=== PATIENT | female | born 1940 | race Caucasian/White ===

== ENCOUNTER 2023-10-01 21:01 | Inpatient (IN) ==
[2023-10-01 22:52] LABS: Basophils # (Auto) 0.02 K/mcL (0.00-0.30); Basophils % (Auto) 0.1 % (0.0-2.0); Eosinophils # (Auto) 0 K/mcL (0.00-0.70); Eosinophils % (Auto) 0 % (0.0-7.0); Hematocrit 34.8 % (34.1-44.9); Hemoglobin 10.8 g/dL (11.2-15.7); Lymphocytes # (Auto) 0.39 K/mcL (1.50-4.80); Lymphocytes % (Auto) 2.6 % (15.5-49.0); Mean Cell Volume 97.5 fL (80.0-100.0); Mean Platelet Volume 10.3 fL (8.8-12.5); Monocytes # (Auto) 0.66 K/mcL (0.10-0.90); Monocytes % (Auto) 4.4 % (1.0-12.0); Neutrophils % (Auto) 91.7 % (38.0-78.0); Platelet Count 251 K/mcL (140-440); RBC 3.57 M/mcL (3.59-5.38); Red Cell Distribution Width 14.1 % (11.5-14.5)
[2023-10-01 23:04] LABS: ALT/SGPT 131 U/L (<40); AST/SGOT 121 U/L (<32); Albumin/Globulin Ratio 1.1 (1.0-2.3); Alkaline Phosphatase 249 U/L (39-117); Bilirubin,Total 0.2 mg/dL (0.1-1.0); Blood Urea Nitrogen 62 mg/dL (8-23); Calcium 9.8 mg/dL (8.6-10.4); Carbon Dioxide 30 mmol/L (22-30); Chloride 103 mmol/L (96-108); Globulin 2.8 gm/dL (2.2-3.7); Glomerular Filtration Rate 37; Glucose 109 mg/dL (70-105)
[2023-10-01] MEDS: IPRATROPIUM/ALBUTEROL 3 ML AMPUL.NEB NEB ONE (23:30)
[2023-10-01] MEDS: 0.9 % SODIUM CHLORIDE 250 ML IV ONE (23:39)
[2023-10-01] MEDS: AZITHROMYCIN 500 MG in DEXTROSE 5% IN WATER 250 ML IV ONE (23:39)
[2023-10-01] MEDS: methylPREDNISolone SOD SUCC 125 MG/2 ML VIAL IV ONE (23:40)
[2023-10-02] MEDS: IPRATROPIUM/ALBUTEROL 3 ML AMPUL.NEB NEB ONE (02:23)
[2023-10-02] MEDS: cefTRIAXone 1 GM VIAL IV SCH (02:53)
[2023-10-02] MEDS: LACTATED RINGERS 1,000 ML IV SCH ×3 (03:28→06:09)
[2023-10-02] MEDS: CEFEPIME 1 GM VIAL IV SCH ×2 (03:30→17:44)
[2023-10-02] MEDS: LACTATED RINGERS 1,000 ML IV ONE (03:30)
[2023-10-02] MEDS: VANCOMYCIN 1,000 MG in 0.9 % SODIUM CHLORIDE 250 ML IV ONE (05:13)
[2023-10-02] MEDS: VANCOMYCIN PER PHARMACY IV ONE (06:08)
[2023-10-02 06:54] LABS: Basophils # (Auto) 0.01 K/mcL (0.00-0.30); Basophils % (Auto) 0.1 % (0.0-2.0); Eosinophils # (Auto) 0 K/mcL (0.00-0.70); Eosinophils % (Auto) 0 % (0.0-7.0); Hematocrit 34.6 % (34.1-44.9); Hemoglobin 10.6 g/dL (11.2-15.7); Lymphocytes # (Auto) 0.24 K/mcL (1.50-4.80); Lymphocytes % (Auto) 1.7 % (15.5-49.0); Mean Cell Volume 100.6 fL (80.0-100.0); Mean Corpuscular HGB Conc 30.6 g/dL (31.0-36.0); Mean Platelet Volume 10.2 fL (8.8-12.5); Monocytes # (Auto) 0.26 K/mcL (0.10-0.90); Monocytes % (Auto) 1.9 % (1.0-12.0); Neutrophils % (Auto) 95.4 % (38.0-78.0); Platelet Count 227 K/mcL (140-440); RBC 3.44 M/mcL (3.59-5.38); Red Cell Distribution Width 13.6 % (11.5-14.5); WBC 13.9 K/mcL (4.5-11.0)
[2023-10-02] MEDS ORDERED: ONDANSETRON 4 MG/2 ML VIAL IV PRN (06:58)
[2023-10-02] MEDS ORDERED: ACETAMINOPHEN 325 MG TABLET PO PRN (06:58)
[2023-10-02] MEDS ORDERED: HYDROcodone/APAP 5/325MG TABLET PO PRN (06:58)
[2023-10-02 07:24] LABS: ALT/SGPT 113 U/L (<40); AST/SGOT 107 U/L (<32); Albumin 2.8 gm/dL (3.2-5.2); Albumin/Globulin Ratio 1.1 (1.0-2.3); Alkaline Phosphatase 240 U/L (39-117); Bilirubin,Total 0.2 mg/dL (0.1-1.0); Blood Urea Nitrogen 52 mg/dL (8-23); C-Reactive Protein 7.29 mg/dL (0.03-0.80); Calcium 9.8 mg/dL (8.6-10.4); Carbon Dioxide 29 mmol/L (22-30); Chloride 103 mmol/L (96-108); Globulin 2.6 gm/dL (2.2-3.7); Glomerular Filtration Rate 46; Glucose 126 mg/dL (70-105)
[2023-10-02] MEDS ORDERED: VANCOMYCIN PER PHARMACY IV SCH (07:45)
[2023-10-02] MEDS: IPRATROPIUM/ALBUTEROL 3 ML AMPUL.NEB NEB SCH (08:06)
[2023-10-02] MEDS: methylPREDNISolone SOD SUCC 125 MG/2 ML VIAL IV SCH (08:22)
[2023-10-02] MEDS: DOCUSATE SODIUM 100 MG CAPSULE PO SCH (08:23)
[2023-10-02] MEDS ORDERED: methylPREDNISolone SOD SUCC 125 MG/2 ML VIAL IV SCH (09:00)
[2023-10-02] MEDS: APIXABAN 2.5 MG TABLET PO SCH (10:46)
[2023-10-02] MEDS: 0.9 % SODIUM CHLORIDE 10 ML SYRINGE IV SCH (13:30)
[2023-10-02] MEDS: METOPROLOL TARTRATE 5 MG/5 ML VIAL IV PRN (13:58)
[2023-10-02] MEDS ORDERED: CHLORHEXIDINE GLUCONATE 0.12% 473ML BOTTLE TOPICAL SCH (14:00)
[2023-10-02] MEDS ORDERED: BISACODYL 5 MG TABLET PO PRN (14:05)
[2023-10-02] MEDS: GABAPENTIN 100 MG CAPSULE PO SCH (14:33)
[2023-10-02] MEDS: guaiFENesin/CODEINE 10 ML UDC PO PRN (15:18)
[2023-10-02] MEDS ORDERED: 0.9 % SODIUM CHLORIDE 1,000 ML IV SCH (15:30)
[2023-10-02 15:52] LABS: Basophils # (Auto) 0 K/mcL (0.00-0.30); Basophils % (Auto) 0 % (0.0-2.0); Eosinophils # (Auto) 0 K/mcL (0.00-0.70); Eosinophils % (Auto) 0 % (0.0-7.0); Hematocrit 38.1 % (34.1-44.9); Hemoglobin 11.4 g/dL (11.2-15.7); Lymphocytes # (Auto) 0.69 K/mcL (1.50-4.80); Lymphocytes % (Auto) 4.3 % (15.5-49.0); Mean Cell Volume 100.8 fL (80.0-100.0); Mean Corpuscular HGB Conc 29.9 g/dL (31.0-36.0); Mean Platelet Volume 10.4 fL (8.8-12.5); Monocytes # (Auto) 0.55 K/mcL (0.10-0.90); Monocytes % (Auto) 3.5 % (1.0-12.0); Neutrophils % (Auto) 91.1 % (38.0-78.0); Platelet Count 327 K/mcL (140-440); RBC 3.78 M/mcL (3.59-5.38); Red Cell Distribution Width 13.7 % (11.5-14.5); WBC 15.9 K/mcL (4.5-11.0)
[2023-10-02 16:09] LABS: ALT/SGPT 117 U/L (<40); AST/SGOT 114 U/L (<32); Albumin/Globulin Ratio 1.1 (1.0-2.3); Alkaline Phosphatase 241 U/L (39-117); Bilirubin,Total 0.3 mg/dL (0.1-1.0); Blood Urea Nitrogen 50 mg/dL (8-23); Calcium 9.7 mg/dL (8.6-10.4); Carbon Dioxide 26 mmol/L (22-30); Chloride 101 mmol/L (96-108); Globulin 2.8 gm/dL (2.2-3.7); Glomerular Filtration Rate 34; Glucose 232 mg/dL (70-105)
[2023-10-02] MEDS: IPRATROPIUM/ALBUTEROL 3 ML AMPUL.NEB NEB PRN (16:09)
[2023-10-02] MEDS: SODIUM CHLORIDE 3 % 15 ML VIAL.NEB INH ONE (16:09)
[2023-10-02] MEDS: guaiFENesin 600 MG TAB.SR.12H PO SCH (16:09)
[2023-10-02] MEDS: RIVAROXABAN 15 MG TABLET PO SCH (17:21)
[2023-10-02] MEDS: BUDESONIDE 0.5 MG/2 ML AMPUL.NEB NEB SCH (18:51)
[2023-10-02] MEDS: BUDESONIDE 0.5 MG/2 ML AMPUL.NEB ONE (20:46)
[2023-10-02] MEDS: HYDROcodone/APAP 5/325MG TABLET PO SCH (21:42)
[2023-10-02] MEDS: traZODone HCL 50 MG TABLET PO SCH (21:42)
[2023-10-02] MEDS: MONTELUKAST 10 MG TABLET PO SCH (21:42)
[2023-10-02] MEDS: methylPREDNISolone SOD SUCC 40 MG/ML VIAL IV SCH (21:42)
[2023-10-02] MEDS: MUPIROCIN OINT 2% 22GM NARES SCH (21:43)
[2023-10-03] MEDS: IPRATROPIUM/ALBUTEROL 3 ML AMPUL.NEB NEB ONE (03:14)
[2023-10-03] MEDS: IPRATROPIUM/ALBUTEROL 3 ML AMPUL.NEB NEB PRN (03:14)
[2023-10-03 06:24] LABS: Basophils # (Auto) 0.01 K/mcL (0.00-0.30); Basophils % (Auto) 0.1 % (0.0-2.0); Eosinophils # (Auto) 0 K/mcL (0.00-0.70); Eosinophils % (Auto) 0 % (0.0-7.0); Hemoglobin 10.5 g/dL (11.2-15.7); Lymphocytes % (Auto) 2.3 % (15.5-49.0); Mean Cell Volume 105.3 fL (80.0-100.0); Mean Corpuscular HGB Conc 29.2 g/dL (31.0-36.0); Mean Platelet Volume 10.9 fL (8.8-12.5); Monocytes # (Auto) 0.45 K/mcL (0.10-0.90); Monocytes % (Auto) 3.4 % (1.0-12.0); Neutrophils % (Auto) 93.8 % (38.0-78.0); Platelet Count 205 K/mcL (140-440); RBC 3.42 M/mcL (3.59-5.38); Red Cell Distribution Width 13.8 % (11.5-14.5); WBC 13.3 K/mcL (4.5-11.0)
[2023-10-03 07:25] LABS: ALT/SGPT 99 U/L (<40); AST/SGOT 96 U/L (<32); Albumin 2.8 gm/dL (3.2-5.2); Alkaline Phosphatase 208 U/L (39-117); Bilirubin,Direct < 0.2 mg/dL (0-0.3); Bilirubin,Total 0.2 mg/dL (0.1-1.0); Blood Urea Nitrogen 53 mg/dL (8-23); Calcium 9.9 mg/dL (8.6-10.4); Carbon Dioxide 23 mmol/L (22-30); Chloride 106 mmol/L (96-108); Globulin 2.7 gm/dL (2.2-3.7); Glomerular Filtration Rate 41; Glucose 151 mg/dL (70-105); Lactate Dehydrogenase 485 U/L (135-225); Phosphorous 2.9 mg/dL (2.5-4.5); Triglycerides 105 mg/dL (<150); Uric Acid 6.3 mg/dL (2.5-8.0)
[2023-10-03] MEDS: METOPROLOL SUCCINATE 25 MG TAB.XL.24H PO SCH (08:37)
[2023-10-03] MEDS: VANCOMYCIN 1,000 MG in 0.9 % SODIUM CHLORIDE 250 ML IV SCH (09:59)
[2023-10-03] MEDS ORDERED: SODIUM CHLORIDE 3 % 15 ML VIAL.NEB INH ONE (21:22)
[2023-10-03] MEDS: SODIUM CHLORIDE 3 % 15 ML VIAL.NEB INH ONE (21:41)
[2023-10-03] MEDS: ACETYLCYSTEINE 800 MG/4 ML VIAL NEB ONE (23:12)
[2023-10-03] MEDS: ACETYLCYSTEINE 800 MG/4 ML VIAL ONE (23:12)
[2023-10-03] MEDS: IPRATROPIUM/ALBUTEROL 3 ML AMPUL.NEB NEB SCH (23:15)
[2023-10-04 05:58] LABS: Basophils # (Auto) 0.01 K/mcL (0.00-0.30); Basophils % (Auto) 0.1 % (0.0-2.0); Eosinophils # (Auto) 0 K/mcL (0.00-0.70); Eosinophils % (Auto) 0 % (0.0-7.0); Hematocrit 36.7 % (34.1-44.9); Lymphocytes # (Auto) 0.32 K/mcL (1.50-4.80); Lymphocytes % (Auto) 1.8 % (15.5-49.0); Mean Cell Volume 100.8 fL (80.0-100.0); Mean Platelet Volume 10.3 fL (8.8-12.5); Monocytes % (Auto) 2.8 % (1.0-12.0); Neutrophils % (Auto) 94.8 % (38.0-78.0); Platelet Count 266 K/mcL (140-440); RBC 3.64 M/mcL (3.59-5.38); WBC 18.1 K/mcL (4.5-11.0)
[2023-10-04 06:24] LABS: ALT/SGPT 93 U/L (<40); AST/SGOT 77 U/L (<32); Albumin 2.9 gm/dL (3.2-5.2); Albumin/Globulin Ratio 1.2 (1.0-2.3); Alkaline Phosphatase 209 U/L (39-117); Bilirubin,Direct < 0.2 mg/dL (0-0.3); Bilirubin,Total 0.3 mg/dL (0.1-1.0); Blood Urea Nitrogen 51 mg/dL (8-23); Calcium 9.9 mg/dL (8.6-10.4); Carbon Dioxide 26 mmol/L (22-30); Chloride 106 mmol/L (96-108); Globulin 2.5 gm/dL (2.2-3.7); Glomerular Filtration Rate 46; Glucose 141 mg/dL (70-105); Lactate Dehydrogenase 308 U/L (135-225); Phosphorous 2.7 mg/dL (2.5-4.5); Triglycerides 148 mg/dL (<150); Uric Acid 5.5 mg/dL (2.5-8.0)
[2023-10-04] MEDS: cefTRIAXone 1 GM VIAL IV SCH (09:05)
[2023-10-04 09:20] LABS: Monocytes % (Manual) 2 % (1-12); Platelet Estimate NORMAL (Normal); Poikilocytosis 1+ (None Seen); RBC Morphology ABNORMAL (Normal); Segmented Neutrophils % 98 % (38-78)
[2023-10-04] MEDS: VANCOMYCIN PER PHARMACY IV ONE (10:41)
[2023-10-04] MEDS: guaiFENesin 600 MG TAB.SR.12H PO SCH (14:40)
[2023-10-04] MEDS: SENNOSIDES 1 TABLET PO PRN (16:47)
[2023-10-05 06:42] LABS: Hematocrit 36.5 % (34.1-44.9); Hemoglobin 11.4 g/dL (11.2-15.7); Mean Cell Volume 96.6 fL (80.0-100.0); Mean Corpuscular HGB Conc 31.2 g/dL (31.0-36.0); Mean Platelet Volume 10.5 fL (8.8-12.5); Platelet Count 280 K/mcL (140-440); RBC 3.78 M/mcL (3.59-5.38); Red Cell Distribution Width 14.1 % (11.5-14.5); WBC 19.6 K/mcL (4.5-11.0)
[2023-10-05 07:15] LABS: Lymphocytes % 1 % (15-49); Monocytes % (Manual) 4 % (1-12); Platelet Estimate NORMAL (Normal); RBC Morphology NORMAL (Normal); Reactive Lymphocytes 2 % (0-2); Segmented Neutrophils % 93 % (38-78)
[2023-10-05 07:36] LABS: ALT/SGPT 73 U/L (<40); AST/SGOT 43 U/L (<32); Albumin 2.9 gm/dL (3.2-5.2); Albumin/Globulin Ratio 1.2 (1.0-2.3); Alkaline Phosphatase 188 U/L (39-117); Bilirubin,Direct < 0.2 mg/dL (0-0.3); Bilirubin,Total 0.3 mg/dL (0.1-1.0); Blood Urea Nitrogen 55 mg/dL (8-23); Calcium 10.1 mg/dL (8.6-10.4); Carbon Dioxide 27 mmol/L (22-30); Chloride 107 mmol/L (96-108); Globulin 2.5 gm/dL (2.2-3.7); Glomerular Filtration Rate 51; Glucose 152 mg/dL (70-105); Lactate Dehydrogenase 295 U/L (135-225); Phosphorous 2.5 mg/dL (2.5-4.5); Triglycerides 116 mg/dL (<150); Uric Acid 4.7 mg/dL (2.5-8.0)
[2023-10-05] MEDS: ACETYLCYSTEINE 800 MG/4 ML VIAL NEB ONE (08:21)
[2023-10-05] MEDS: VANCOMYCIN 1,000 MG in 0.9 % SODIUM CHLORIDE 250 ML IV SCH (14:59)
[2023-10-05] MEDS: 0.9 % SODIUM CHLORIDE 10 ML SYRINGE IV SCH (20:36)
[2023-10-06 06:28] LABS: Blood Urea Nitrogen 49 mg/dL (8-23); Calcium 9.6 mg/dL (8.6-10.4); Carbon Dioxide 31 mmol/L (22-30); Chloride 106 mmol/L (96-108); Glomerular Filtration Rate 67; Glucose 154 mg/dL (70-105)
[2023-10-06] MEDS: predniSONE 20 MG TABLET PO SCH (08:56)
[2023-10-06] MEDS: FLUCONAZOLE 100 MG TABLET PO ONE (14:55)
[2023-10-06] MEDS: ATORVASTATIN 40 MG TABLET PO SCH (21:08)
[2023-10-07 06:29] LABS: Basophils # (Auto) 0.01 K/mcL (0.00-0.30); Basophils % (Auto) 0.1 % (0.0-2.0); Eosinophils # (Auto) 0 K/mcL (0.00-0.70); Eosinophils % (Auto) 0 % (0.0-7.0); Hematocrit 35.4 % (34.1-44.9); Hemoglobin 10.8 g/dL (11.2-15.7); Lymphocytes % (Auto) 3.1 % (15.5-49.0); Mean Cell Volume 98.9 fL (80.0-100.0); Mean Corpuscular HGB Conc 30.5 g/dL (31.0-36.0); Mean Platelet Volume 10.4 fL (8.8-12.5); Monocytes # (Auto) 1.16 K/mcL (0.10-0.90); Neutrophils % (Auto) 89.9 % (38.0-78.0); Platelet Count 286 K/mcL (140-440); RBC 3.58 M/mcL (3.59-5.38); Red Cell Distribution Width 14.3 % (11.5-14.5); WBC 19.4 K/mcL (4.5-11.0)
[2023-10-07 06:50] LABS: Blood Urea Nitrogen 47 mg/dL (8-23); Calcium 9.7 mg/dL (8.6-10.4); Carbon Dioxide 33 mmol/L (22-30); Chloride 108 mmol/L (96-108); Glomerular Filtration Rate 79; Glucose 116 mg/dL (70-105)
[2023-10-07] MEDS: 0.45 % SODIUM CHLORIDE 1,000 ML IV SCH (08:40)
[2023-10-08] MEDS: 0.9 % SODIUM CHLORIDE 10 ML SYRINGE IV PRN (04:10)
[2023-10-08 06:34] LABS: Hematocrit 37.5 % (34.1-44.9); Hemoglobin 11.4 g/dL (11.2-15.7); Mean Cell Volume 97.4 fL (80.0-100.0); Mean Corpuscular HGB Conc 30.4 g/dL (31.0-36.0); Mean Platelet Volume 10.5 fL (8.8-12.5); Platelet Count 308 K/mcL (140-440); RBC 3.85 M/mcL (3.59-5.38); Red Cell Distribution Width 14.3 % (11.5-14.5); WBC 19.4 K/mcL (4.5-11.0)
[2023-10-08 06:57] LABS: ALT/SGPT 44 U/L (<40); AST/SGOT 32 U/L (<32); Albumin/Globulin Ratio 1.4 (1.0-2.3); Alkaline Phosphatase 137 U/L (39-117); Bilirubin,Direct < 0.2 mg/dL (0-0.3); Bilirubin,Total 0.5 mg/dL (0.1-1.0); Blood Urea Nitrogen 37 mg/dL (8-23); Calcium 9.5 mg/dL (8.6-10.4); Carbon Dioxide 33 mmol/L (22-30); Chloride 103 mmol/L (96-108); Globulin 2.1 gm/dL (2.2-3.7); Glomerular Filtration Rate 83; Glucose 89 mg/dL (70-105); Lactate Dehydrogenase 287 U/L (135-225); Phosphorous 2.6 mg/dL (2.5-4.5); Triglycerides 166 mg/dL (<150); Uric Acid 3.1 mg/dL (2.5-8.0)
[2023-10-08 07:02] LABS: Band Neutrophils % 1 % (0-10); Eosinophils % (Manual) 1 % (0-7); Lymphocytes % 5 % (15-49); Monocytes % (Manual) 4 % (1-12); Platelet Estimate NORMAL (Normal); RBC Morphology NORMAL (Normal); Reactive Lymphocytes 1 % (0-2); Segmented Neutrophils % 88 % (38-78)
[2023-10-08] MEDS: CEFDINIR 300 MG CAPSULE PO SCH (09:10)
[2023-10-08] MEDS: DOXYCYCLINE HYCLATE 100 MG TABLET.ORL PO SCH (09:11)
== END 2023-10-08 12:30 | DRG 871 ==
LOC: ED 21:01 → MEDSUR 10-02 04:02 → ICU 10-02 15:47 → MEDSUR 10-07 10:33
PROVIDERS: ADMIT Student in an Organized Health Care Education/Training Program; ATTEND Student in an Organized Health Care Education/Training Program